=== PATIENT | female | born 1955 | race Caucasian/White ===

== ENCOUNTER 2021-06-15 14:18 | Outpatient (CLI) | payer MEDICARE, BC, SELFPAY ==
--- NOTE | ~2021-06-15 | XR_ITS ---
XR chest 2V DATE: 06/15/2021 14:44 INDICATION: Cough, sore throat. Smoker. TECHNIQUE: PA and lateral views COMPARISON: 07/25/2012 portable AP chest FINDINGS: There is an approximately 1.7 cm mass in the left lower lobe, suspicious for lung cancer. The lungs are moderately hyperinflated. No pulmonary infiltrate or consolidation, pleural effusion or pulmonary vascular congestion or pneumothorax is detected. No hilar or mediastinal enlargement is ev ident. Normal heart size. There is thoracic aortic tortuosity. Multiple surgical clips overlie the mid lower chest, with multiple surgical clips and some opaque sut ures overlying the left upper quadrant of the abdomen. Diffuse osteopenia. IMPRESSION: Approximately 1.7 cm left lower lobe mass, suspicious for lung cancer Dr. Varma telephoned the report including the left lower lobe lung mass to Dr. Sagastume on 06/15/2021 at 1 558 hours. Reviewed, dictated and finalized at location B. CENTER MANAGER IMPRESSION: Approximately 1.7 cm left lower lobe mass, suspicious for lung canc er Dr. Varma telephoned the report including the left lower lobe lung mass to Dr. Kike gandara on 06/15/2021 at 1558 hours.
== END 2021-06-15 14:19 | disposition home or self-care (01) ==
PROVIDERS: PCP Internal Medicine; Visit Provider Internal Medicine
DX: R05.9 Cough, unspecified (principal); M85.88 Other specified disorders of bone density and structure, other site
CPT/HCPCS: 71046

== ENCOUNTER → 2021-06-17 12:56 | Outpatient (CLI) | payer MEDICARE, BC, SELFPAY ==
--- NOTE | ~2021-06-17 | CT_ITS ---
EXAMINATION: CT diagnostic chest wo con DATE: 06/17/2021 13:11 INDICATION: Left lower lobe nodule chest radiograph TECHNIQUE: Computed tomography (CT) of the chest was performed without intravenous contrast. The dose -length product (DLP) was 477.68 mGy-cm. Automated exposure control and iterative reconstruction tech [employer] were employed. COMPARISON: None FINDINGS: There is a 1.8 cm nodule of the left lower lobe. There is a 1.4 x 0.9 cm nodule of the righ t middle lobe on image 72. The lungs are free of focal airspace opacities. There is no pleural effusi on or pneumothorax. No pathologically enlarged thoracic lymph nodes are identified. The heart size is normal. There are surgical clips in the left upper quadrant. The gallbladder is surgically absent. T here is apparent lipomatous hypertrophy of the interatrial septum. There is moderate thoracic spondyl osis. IMPRESSION: 1. Left lung nodule suspicious for primary bronchogenic carcinoma. CT-guided biopsy is recommended. 2. Right middle lobe nodule which may be metastatic versus primary neoplasm. Reviewed, dictated and finalized at location A. [place] PROPERTY MANAGER IMPRESSION: 1. Left lung nodule suspicious for primary bronchogenic carcinoma. CT-guided bi opsy is recommended. 2. Right middle lobe nodule which may be metastatic versus primary neoplasm.
== END ==
PROVIDERS: PCP Internal Medicine; Visit Provider Internal Medicine
DX: R91.8 Other nonspecific abnormal finding of lung field (principal)
CPT/HCPCS: 71250

== ENCOUNTER 2021-06-29 01:58 | Outpatient (CLI) | payer MEDICARE, BC, SELFPAY ==
--- NOTE | 2021-06-21 15:52 | PC.NURSE ---
Addendum entered by Adriana Khan RN 06/21/21 15:56: GLIPIZIDE HOLD MORNING OF PROCEDURE Original Note: Report to the Outpatient Waiting Room, entrance under the green pavilion located off [facility], at time _0900 on date _06/29/21 . OR Time: 1100 . - You and your visitor will be asked a series of questions to screen for COVID 19 for your protection. - A mask is required within the hospital. Preoperative COVID Testing Requirements: No COVID Test needed if: (proof is required; if not received patient will have Rapid Test prior to entry) - Patient has received COVID Vaccine at least 14 days prior to procedure date or - Patient has positive COVID test result within last 90 days of surgery date. COVID TESTING 06/26/21 @1030 COVID Test needed if above criteria is not met If not COVID vaccinated a COVID test must be conducted within 72 hours of surgery and patient is asked to isolate self from time of testing until procedure. You will go to the [facility] for your COVID testing. The [facility] site is located at the corner of [address] [facility]. You will only be called if COVID results are positive and your surgeon may reschedule your elective surgery date. NOTHING TO EAT OR DRINK 6 HOURS PRIOR TO PROCEDURE Take the following medications with a SIP of water the morning of surgery: ____ALL ROUTINE MORNING MEDICATIONS Medications to discontinue per physician ____PT STATES NAPROXEN 7 DAYS PRE OP Date to take last dose___06/21/21 Please no make-up, nail sinhala, hairspray, perfume, deodorant, or body powder the day of surgery. No jewelry (including any body piercings) or valuables the day of surgery, leave them at home. Please take a shower or bath the night before, or the morning of, surgery with an antibacterial soap. Wear comfortable, loose fitting clothing. Children are encouraged to wear pajamas. - Jewelry must be removed prior to entering the operating room. Rings and piercings that are not removed may be cut off. - The hospital will not accept responsibility for valuables. - Please leave all valuables, including medications, at home the day of surgery. If you are going home after surgery, a licensed moving van driver must drive you home. - NO public transportation without another adult. - We recommend that an adult stay with you for 24 hours following discharge. - We also recommend that you do not drive, make important decision, drink alcoholic beverages, or take any drugs that were not prescribed by your health care provider for at least 24 hours after your discharge time. One visitor will be allowed to accompany the patient into the hospital. Patients visitor will be instructed to remain with patient at all times or leave the building. We will allow the visitor to come back to the postoperative area when patient is ready. Follow any additional instructions given to you from your surgeon. Telephone instructions given to _PATIENT and asked if any additional questions and then verbalized understanding. Patient advised to call surgeon office or pre surgery nurse liaison [phone] if any additional questions.
[2021-06-21 15:57] VITALS: BMI 33.4
--- NOTE | ~2021-06-29 | XR_ITS ---
EXAMINATION: XR chest 1V DATE: 06/29/2021 11:15 INDICATION: Left lung nodule status post percutaneous biopsy. TECHNIQUE: A single frontal view of the chest was obtained. COMPARISON: Chest 2 views 06/15/2021 FINDINGS: There is a nodule in left lower lobe. No pleural effusion or pneumothorax. The heart size i s normal. There are surgical clips in the abdomen. IMPRESSION: 1. Nodule in left lung lower lobe suspicious for malignancy. Reviewed, dictated and finalized at location A. HANDISING PROFESSOR
--- NOTE | ~2021-06-29 | CT_ITS ---
EXAMINATION: CT biopsy lung w/imaging DATE: 06/29/2021 11:15 INDICATION: Left lung lower lobe nodule. TECHNIQUE: The procedure including the risks, benefits, and alternatives and possibility of chest tub e placement were discussed with the patient. Risks discussed included infection, approximately 1/20 r isk of symptomatic hemorrhage beyond mild hemoptysis, approximately 1/3 risk of pneumothorax, approxi mately 1/10 risk of pneumothorax severe enough to warrant chest tube placement, and rarely . The patient understood the risks and agreed to proceed. The patient was placed prone. The skin overlyin g the left lung was prepped and draped in sterile fashion. Anesthetic was administered with 1% lidoc kiki subcutaneously. A 19 gauge outer needle was advanced under CT guidance to the lesion of interes t. A 20 gauge core biopsy needle was then used to obtain 3 core biopsy specimens. The needle was francesca leon and the entry site was cleaned and dressed. The mA was adjusted according to patient size. Iterat ghada reconstruction technique was employed. The dose-length product was 162.06 mGy-cm. There were no immediate complications. FINDINGS: CT images demonstrate the outer needle tip adjacent to a 1.9 cm nodule in left lung lower l obe. IMPRESSION: 1. CT-guided core needle biopsy of a 1.9 cm nodule in left lung lower lobe. Reviewed, dictated and finalized at location A. L HEALTH CONSULTANT
--- NOTE | ~2021-06-29 | XR_ITS ---
EXAMINATION: XR chest 1V portable 06/29/2021 14:21 INDICATION: Postbiopsy. Evaluate for pneumothorax. PROCEDURE: AP portable chest COMPARISON: 06/29/2021 FINDINGS: No focal pneumonia or edema. The cardiomediastinal silhouette is within normal limits. The re are no pleural effusions. Small stable left apical pneumothorax. Left basilar nodule unchanged, espinal spicious for malignancy. IMPRESSION: 1: Small residual left apical pneumothorax.. Reviewed, dictated and finalized at location A. ERGARTEN PREP TEACHER
--- NOTE | ~2021-06-29 | XR_ITS ---
EXAMINATION: XR chest 1V portable DATE: 06/29/2021 11:50 INDICATION: Left chest pain after lung biopsy. TECHNIQUE: A single frontal view of the chest was obtained. COMPARISON: Chest single view at 11:08 AM FINDINGS: There is a nodule in left lung lower lobe. No pleural effusion. There is a small left pneum othorax. The heart size is normal. There are surgical clips in the abdomen. IMPRESSION: 1. Left lung lower lobe nodule suspicious for malignancy. 2. Small left pneumothorax. I called this result to Dr. Jarrett. 3. 710 left chest pain. The patient is diaphoretic, and some of the blood pressures have been low. T he patient will be transferred to the emergency department for further evaluation. Reviewed, dictated and finalized at location A. D AMBASSADORS PROMOTIONAL SALES IMPRESSION: 1. Left lung lower lobe nodule suspicious for malignancy. 2. Small left pneumothorax. I called this result to Dr. Jarrett. 3. 710 left chest pain. The patient is diaphoretic, and some of the blood pres sures have been low. The patient will be transferred to the emergency departmen t for further evaluation.
[2021-06-29 09:44] LABS: Platelet Count Result 196 k/mm3 (150-375)
[2021-06-29 09:47] VITALS: BP 148/81; PULSE 93; RESP 16; TEMP 36.9; O2SAT 97
[2021-06-29 09:55] LABS: Prothrombin Time 12.8 Seconds (11.1-14.7)
[2021-06-29 11:20] VITALS: BP 66/39; PULSE 56; RESP 16
[2021-06-29 11:35] VITALS: BP 87/55; PULSE 55; RESP 16; O2SAT 98
--- NOTE | 2021-06-29 11:49 | SUR.PHASEII ---
1150- pt diaphoretic, BP low as charted. XR done, no pneumothoraax per Dr Cevallos. 12 lead ekg ordered. pt on oxygen. Answers questions readily.
[2021-06-29 12:07] LABS: Glucose Point of Care 152 mg/dl (65-105)
--- NOTE | 2021-06-29 12:27 | SUR.PHASEII ---
1155- pt taken to ER. Family member notified atthat time.
== END 2021-06-29 11:50 | disposition home or self-care (01) ==
PROVIDERS: PCP Internal Medicine; Visit Provider Radiology Diagnostic Radiology
PROC: BB24ZZZ Computerized Tomography (CT Scan) of Bilateral Lungs (ICD-10-PCS; CPT 32408; principal; 2021-06-29 11:00)
DX: C34.32 Malignant neoplasm of lower lobe, left bronchus or lung (principal)
CPT/HCPCS: 32408; 36415; 71045; 71275; 80053; 82948; 84484; 85025; 85049; 85610; 85730; 88305; 88342; 93005; 99284; Q9967

== ENCOUNTER 2021-06-29 12:02 | Emergency (ER) | payer MEDICARE, BC, SELFPAY ==
[2021-06-29] VITALS (8 sets, daily range): BP systolic 85–125; BP diastolic 63–76; PULSE 60–93; RESP 11–22; TEMP 36.4–36.6; O2SAT 97–100
--- NOTE | ~2021-06-29 | CT_ITS ---
EXAMINATION: CTA chest PE protocol DATE: 06/29/2021 16:13 INDICATION: Chest pain after left lung biopsy. TECHNIQUE: Computed tomography angiography (CTA) of the chest was performed with 100 mL Omnipaque-350 intravenous contrast timed to evaluate the pulmonary arteries. Coronal maximum intensity projection 3D-reconstructions were created by the technologist. Automated exposure control and iterative reconst ruction technique were employed. The dose-length product was 589.65 mGy-cm. COMPARISON: Chest CT 06/17/2021 FINDINGS: There is mild atelectasis bilaterally. There is a 10 mm nodule in right middle lobe. There is a 20 mm nodule in left lower lobe. There is a small left pneumothorax. No pleural effusion. There is no pulmonary embolus. The heart size is normal. There is lipomatous hypertrophy of the interatrial septum. There are coronary artery calcifications. No pericardial effusion. There are surgical change s of the stomach. There are changes of cholecystectomy. There are cysts in left kidney measuring up t o 2.0 cm. There is severe thoracic spondylosis. There is severe cervical spondylosis. IMPRESSION: 1. 20 mm nodule in left lung lower lobe suspicious for primary bronchogenic carcinoma. 2. 10 mm nodule in right lung middle lobe suspicious for primary bronchogenic carcinoma or metastatic disease. 3. Small iatrogenic left pneumothorax. 4. No pulmonary embolus. Reviewed, dictated and finalized at location A. IVABLE MANAGER IMPRESSION: 1. 20 mm nodule in left lung lower lobe suspicious for primary bronchogenic car cinoma. 2. 10 mm nodule in right lung middle lobe suspicious for primary bronchogenic c arcinoma or metastatic disease. 3. Small iatrogenic left pneumothorax. 4. No pulmonary embolus.
--- NOTE | 2021-06-29 11:48 | ECG_ITS ---
Measurements Intervals [place] Rate: 59 P: -82 AR: 128 QRS: 21 QRSD: 84 T: 22 QT: 428 QTc: 425 Interpretive Statements BASELINE SIGNIFICANT ARTIFACT PROBABLE SINUS RHYTHM WITH OCCASIONAL SUPRAVENTRICULAR PREMATURE COMPLEXES NO PREVIOUS ECG AVAILABLE FOR COMPARISON Electronically Signed On 06-29-2021 12:30:34 MACHINE PAINT MIXER by Eduardo PATRICIA
--- NOTE | 2021-06-29 12:29 | ED.CHESTPAIN ---
HPI - Chest Pain General Chief Complaint: Chest Pain Stated Complaint: Abnormal vitals/CP Time Seen by Provider: 06/29/21 12:29 Source: patient Mode of arrival: wheelchair Limitations: no limitations History of Present Illness HPI narrative: The patient is a 66-year-old female with a history of COPD, asthma, anxiety, depression, bipolar disorder, diabetes, presenting to the emergency department for evaluation of chest pain following lung biopsy this morning. Patient reportedly tolerated a left lung biopsy with our radiology department and was recovering in the PACU, when she began to report left-sided chest pain. Patient was taken for a chest x-ray which revealed a small left-sided pneumothorax without effusion or concern for hemothorax. Patient was noted to be hypotensive, thus was transferred to our emergency department after I spoke with the radiologist Dr. Cevallos. At the time of arrival, patient reports only mild left-sided chest pain. She denies any radiation to the jaw, neck, shoulders, back, flanks. She denies lightheadedness, dizziness, shortness of breath. Patient states that the pain lasted for approximately 15 minutes and did seem to be worse when she was moving. She states that the pain improves with placement of an ice pack. Patient denies any history of heart attack, previous cardiac events. She denied any diaphoresis with the pain. Denied palpitations. Related Data Home Medications Medication Instructions Recorded Confirmed albuterol sulfate [Proventil HFA] 2 puff INHALATION QID PRN 06/21/21 06/29/21 atorvastatin 10 mg PO HS 06/21/21 06/29/21 benzonatate 200 mg PO TID 06/21/21 06/29/21 buspirone 15 mg PO BID 06/21/21 06/29/21 cholecalciferol (vitamin D3) 50 mcg PO DAILY 06/21/21 06/29/21 esomeprazole magnesium 40 mg PO DAILY 06/21/21 06/29/21 fluticasone propion-salmeterol 1 inh INHALATION BID 06/21/21 06/29/21 [Wixela Inhub] glipizide 10 mg PO BID 06/21/21 06/29/21 lisinopril 20 mg PO DAILY 06/21/21 06/29/21 naproxen 500 mg PO BID 06/21/21 06/29/21 oxcarbazepine 300 mg PO TID 06/21/21 06/29/21 paroxetine HCl 40 mg PO QAM 06/21/21 06/29/21 Allergies Allergy/AdvReac Type Severity Reaction Status Date / Time gabapentin AdvReac SKIN Verified 06/29/21 09:20 TURNED TO LEATHER Review of Systems Review of Systems: CONSTITUTIONAL: Denies fever, chills, or sweats. EYES: Denies visual changes, redness, or discharge. ENT: Denies rhinorrhea, congestion, sore throat, or otalgia. CARDIOVASCULAR: Denies chest pain, palpitations, or edema. RESPIRATORY: Denies cough or dyspnea. GASTROINTESTINAL: Denies abdominal pain, nausea, vomiting, or diarrhea. GENITOURINARY: Denies dysuria or hematuria. SKIN: Denies rash or itching. MUSCULOSKELETAL: Denies back pain, joint pain, or myalgia. NEUROLOGIC: Denies headache, numbness, or weakness. PSYCHIATRIC: Denies anxiety or depression. [facility] Family History Family History (Updated 12/26/13 @ 07:13 by DOCTOR UNKNOWN) Mother Cerebrovascular accident Acute myocardial infarction Other Diabetes mellitus Family history of allergic disorder Family history of arthritis Family history of cardiovascular disease Family history of gout Family history of heart disease in male family member before age 55 Hypertension Social History Social History Smoking packs per day: 1 Smoking cigarettes per day: 20.0 Years smoked: 31 Smoking pack-years: 31.00 Smoking status: Current every day smoker Tobacco type: cigarettes Alcohol intake: never Spiritual care concerns: No Exam Narrative: GENERAL: Awake, alert, conversant HEAD: Normocephalic, atraumatic. EYES: PERRLA and EOMI. ENT: Nares clear, no rhinorrhea or epistaxis. Mucous membranes moist. NECK: Supple. CHEST: No respiratory distress, breathing even and non labored, no crepitus. Expiratory wheezing bilateral lower lung col[place]. No crackles. There is a small puncture wound with a bandage to t
--- NOTE | 2021-06-29 12:32 | ECG_ITS ---
Measurements Intervals [place] Rate: P: [place]: QRS: QRSD: T: QT: QTc: Interpretive Statements NORMAL SINUS RHYTHM SIGNIFICANT BASELINE ARTIFACT LIMITS INTERPRETATION NONSPECIFIC T-WAVE ABNORMALITY ABNORMAL ECG Electronically Signed On 06-30-2021 13:57:38 STORE SALES MANAGER by Vic Singh M.D.
--- NOTE | 2021-06-29 13:16 | PC.NURSE ---
Patient initially reported 5/10 chest pain. patient reports pain to continually subside during stay. Patient reports pain as 0 to 1 out of 10.
[2021-06-29 13:21] LABS: Basophils Percent Auto 0.7 % (0.2-1.2); Eosinophils Absolute Auto 0.1 K/mm3 (0-0.3); Eosinophils Percent Auto 0.9 % (0-4.4); Hemoglobin 15.9 g/dL (12.0-15.0); Immature Granulocyte Absolute 0.02 K/mm3 (0.00-0.031); Immature Granulocyte Percent A 0.4 % (0-0.5); Lymphocytes Absolute Auto 1.36 K/mm3 (0.9-3.2); Lymphocytes Percent Auto 24.7 % (18.3-44.2); Mean Corpuscular HGB Conc 33.1 g/dl (32-36); Mean Corpuscular Hemoglobin 30.2 pg (26-34); Mean Corpuscular Volume 91.3 fl (80-100); Monocytes Absolute Auto 1.1 K/mm3 (0.1-0.6); Monocytes Percent Auto 19.8 % (2.6-8.5); Neutrophils Absolute Auto 2.9 K/mm3 (1.3-6.7); Neutrophils Percent Auto 53.5 % (45.5-73.1); Platelet Count Result 184 k/mm3 (150-375); Red Blood Count 5.26 M/mm3 (4.2-5.4); Red Cell Distribution Width 13.9 % (11.5-14.5); White Blood Count 5.5 K/mm3 (4.5-10.0)
[2021-06-29 13:29] LABS: Alanine Aminotransferase 14 U/L (4-35); Albumin Level 4.3 g/dL (3.5-5.1); Alkaline Phosphatase 82 U/L (38-126); Anion Gap 5 mmol/L (8-16); Aspartate Amino Transferase 24 U/L (14-36); Bilirubin,Total 0.6 mg/dL (0.2-1.3); Blood Urea Nitrogen 14 mg/dL (7-17); Calcium 9.4 mg/dL (8.4-10.2); Carbon Dioxide 34 mmol/L (22-30); Chloride 101 mmol/L (98-107); Estimated CRCL calculation 68 ml/min; Estimated Glomerular Filt Rate > 60; Glucose 170 mg/dL (65-110); Potassium 4.6 mmol/L (3.4-5.0); Sodium 140 mmol/L (137-145)
[2021-06-29 13:43] LABS: Troponin I < 0.012 ng/mL (0.000-0.034)
[2021-06-29 13:45] LABS: Partial Thromboplastin Time 28.7 SECONDS (22.3-36.8); Prothrombin Time 12.5 Seconds (11.1-14.7)
[2021-06-29 16:05] LABS: Troponin I < 0.012 ng/mL (0.000-0.034)
== END 2021-06-29 17:51 | disposition home or self-care (01) ==
PROVIDERS: Emergency Provider Emergency Medicine; PCP Internal Medicine
DX: J93.9 Pneumothorax, unspecified (principal); R07.9 Chest pain, unspecified; F17.210 Nicotine dependence, cigarettes, uncomplicated
CPT/HCPCS: 36415; 71275; 80053; 84484; 85025; 85610; 85730; 93005; 99284; Q9967

== ENCOUNTER 2021-06-30 12:59 | Outpatient (CLI) | payer MEDICARE, BC, SELFPAY ==
--- NOTE | ~2021-06-30 | XR_ITS ---
EXAMINATION: XR chest 2V EXAM DATE: 06/30/2021 13:23 INDICATION: Pneumothorax monitoring, pnemo yesterday after lung biopsy. TECHNIQUE: Frontal and lateral projections of the chest obtained and reviewed. Comparison is made to prior examination from 06/29/2021. FINDINGS: There is left lower lobe nodule measuring 20 mm. The smaller right lower lobe nodule not we ll visualized. No evidence of pneumothorax on this exam. Cardiomediastinal silhouette is normal. Uppe r abdominal surgical clips. There are no osseous abnormalities identified. IMPRESSION: Left basilar nodule. No evidence pneumothorax. Reviewed, dictated and finalized at location B. RD WASTE HANDLER
== END 2021-06-30 13:00 | disposition home or self-care (01) ==
PROVIDERS: PCP Internal Medicine; Referring Provider Internal Medicine; Visit Provider Emergency Medicine
DX: J95.811 Postprocedural pneumothorax (principal); R91.1 Solitary pulmonary nodule
CPT/HCPCS: 71046